=== PATIENT | male | born 1980 | race Caucasian/White ===

== ENCOUNTER 2016-10-29 12:17 | Emergency (ER) | payer MEDICAID ==
[~2016-10-29] VITALS: Ht 182.9 cm; Wt 122.5 kg
--- NOTE | 2016-10-29 13:20 | PHYS DOC ---
Past Medical History Past Medical History: Diabetes-Type II Past Surgical History: Cholecystectomy, Other Additional Past Surgical Histo: ABSCESS 2009 LEFT GROIN, R KNEE Alcohol Use: None Drug Use: None Adult General Chief Complaint Chief Complaint: MECHANICAL FALL HPI HPI Patient is a 36 year old male who presents with right shoulder pain after fall. Patient reports 2 days ago he is on a ladder taking down [place] lights. He fell off the ladder, approximately 10 feet onto the ground and landed on his right side. He did not hit his head or lose consciousness. His right elbow was dislocated, and patient quickly reduce this by himself. Although he had some minor aches in his right elbow and right shoulder, he started having much more significant pain in his right shoulder on Sunday. He presents today with continued pain in his right shoulder; he is having difficulty lifting his arm due to pain. He does have a small abrasion to his right elbow which he has been putting antibiotic ointment on. Last tetanus shot 4 years ago. Patient has taken Tylenol and ibuprofen for pain with insufficient relief. Review of Systems Review of Systems Constitutional: Denies fever or chills Eyes: Denies change in visual acuity or eye pain HENT: Denies nasal congestion or sore throat Respiratory: Denies cough or shortness of breath Cardiovascular: Denies chest pain GI: Denies abdominal pain, nausea, vomiting, bloody stools or diarrhea : Denies dysuria or hematuria Musculoskeletal: R shoulder pain; dislocated R elbow reduced by himself just after fall Integument: Denies rash or skin lesions Neurologic: Denies headache, focal weakness or sensory changes Current Medications Current Medications Current Medications Medications (Trade) Dose Ordered Sig/Michelle Start Time Stop Time Status Last Admin Dose Admin Oxycodone/ Acetaminophen (Percocet 5/325) 2 tab 1X ONCE 10/29/16 14:00 10/29/16 14:01 DC 10/29/16 13:36 2 TAB Allergies Allergies Allergies Coded Allergies Type Severity Reaction Last Updated Verified No Known Drug Allergies 10/29/16 No Physical Exam Physical Exam Constitutional: Well developed, well nourished, no acute distress, non-toxic appearance HENT: Normocephalic, atraumatic, bilateral external ears normal Eyes: EOMI, conjunctiva normal, no discharge Neck: Normal range of motion, no stridor. No midline TTP, no stepoff or deformity Cardiovascular: Heart rate normal, regular rhythm, no murmur Lungs & Thorax: Bilateral breath sounds clear to auscultation Abdomen: Bowel sounds normal, soft, non-distended, no TTP Skin: Warm, dry, no erythema, no rash Back: No midline tenderness, no stepoff or deformity Extremities: R shoulder visually similar to L shoulder, no deformity or skin lesion noted; R shoulder and trapezius generally TTP; ROM appears intact, although abduction of arm significantly limited by pain; R elbow without visual or palpable abnormality, minimal TTP if at all; 2+ radial pulse, motor function and sensation to light in hand/forearm fully intact Neurologic: Alert and oriented X 3, no gross deficits noted Current Patient Data Vital Signs Vital Signs Date Time Temp Pulse Resp B/P Pulse Ox O2 Delivery O2 Flow Rate FiO2 10/29/16 14:27 82 16 121/57 99 10/29/16 13:00 97.5 Room Air 97.5 EKG EKG [] Radiology/Procedures Radiology/Procedures X-ray R elbow: Impression: 1. No acute fracture noted in the right elbow. X-ray R shoulder: Impression: 1. Soft tissue swelling right shoulder. 2. No fracture or dislocation right shoulder. Course & Med Decision Making Course & Med Decision Making Pertinent Labs and Imaging studies reviewed. (See chart for details) Patient is 36-year-old male who presents with right shoulder pain status post fall 2 days ago from ladder. Apparently dislocated his right elbow, which he then reduced himself. Elbow without obvious abnormality. Neurovascularly intact. Shoulder generally tender to palpation, suspect non-bony injury such as to rotator cuff or labrum more likely. Will obtain x-rays of shoulder and elbow to evaluate. Dose of oral pain medication ordered for patient comfort. Imaging results as above. Discussed results with patient. Discussed need to follow up with orthopedic surgeon. Patient placed in sling. Discharged home with rx for pain medication, instructions for follow up with ortho, return precautions. Dragon Disclaimer Dragon Disclaimer This electronic medical record was generated, in whole or in part, using a voice recognition dictation system. Departure Departure Impression: Primary Impression: Shoulder injury Disposition: HOME, SELF-CARE Condition: STABLE Referrals: LESLIE HERBERT II, MD Patient Instructions: Elbow Dislocation, Shoulder Sprain Additional Instructions: Thank you for allowing us to provide care today in the Emergency Department. Take the provided medication as directed. Use caution when taking the pain medication as it can make you drowsy. Schedule a follow up appointment with an orthopedic surgeon using the provided contact information. Return promptly to the Emergency Department if you develop any new or concerning symptoms. Scripts Hydrocodone/Apap 5-325 ([place] 5-325 Tablet)1 Each Tablet1-2 Tab PO PRN Q6HRS PRN PAIN #25 TAB Prov:CLAUDIA RODAS MD 10/29/16 CLAUDIA RODAS MD Oct 29, 2016 13:20
--- NOTE | 2016-10-29 13:55 | RAD ---
Right shoulder 3 views. History: Fell from a ladder, pain right shoulder and elbow 3 views were taken of the right shoulder. There is not evidence of an acute fracture or dislocation or osseous abnormality. There is soft tissue swelling. Impression: 1. Soft tissue swelling right shoulder. 2. No fracture or dislocation right shoulder.
[2016-10-29] MEDS ORDERED: OXYCODONE/APAP 5/325 TABLET. PO ONE (14:00)
--- NOTE | 2016-10-29 14:00 | RAD ---
Right elbow 3 views. History: Right elbow pain after a fall off a ladder "self reduced elbow dislocation" 3 views were taken of the right elbow. There is no acute fracture. Elbow is in normal position. There is soft tissue swelling. Impression: 1. No acute fracture noted in the right elbow.
[2016-10-29] MEDS ORDERED: HYDR-971 PO (14:16)
[2016-10-29 14:27] VITALS: BP 121/57
== END 2016-10-29 14:30 | disposition home or self-care (01) ==
LOC: ER 13:26
DX: S49.91XA Unspecified injury of right shoulder and upper arm, initial encounter (principal); M25.521 Pain in right elbow; E11.9 Type 2 diabetes mellitus without complications; Z90.49 Acquired absence of other specified parts of digestive tract; W11.XXXA Fall on and from ladder, initial encounter; Y93.89 Activity, other specified; Y92.89 Other specified places as the place of occurrence of the external cause; Y99.8 Other external cause status
CPT/HCPCS: 73030; 73080; 99284

== ENCOUNTER 2016-11-29 07:11 | Emergency (ER) | payer SELFPAY ==
[~2016-11-29] VITALS: Ht 185.4 cm; Wt 124.7 kg
[~2016-11-29 07:11] MED LIST: HYDR-971 PO
[2016-11-29] MEDS ORDERED: IV NORMAL SALINE 1000ML BAG 1,000 ML IV SCH (07:31)
[2016-11-29] MEDS: MORPHINE SULFATE 4 MG/ML DISP.SYRIN. IV/SQ PRN ×3 (07:43→09:04)
[2016-11-29 07:44] LABS: BASO % 1 % (0-3); EOS % 4 % (0-3); HEMATOCRIT 38.2 % (39.0-53.0); HEMOGLOBIN 12.5 g/dL (13.0-17.5); LYMPH # 1.5 x10^3/uL (1.0-4.8); LYMPH % 23 % (24-48); MEAN CORPUSCULAR HEMOGLOBIN 28 pg (25-35); MEAN CORPUSCULAR HGB CONC 33 g/dL (31-37); MEAN CORPUSCULAR VOLUME 86 fL (79-100); MONO % 6 % (0-9); NEUT % 68 % (31-73); PLATELET COUNT 287 x10^3/uL (140-400); RED BLOOD COUNT 4.46 x10^6/uL (4.30-5.70); RED CELL DISTRIBUTION WIDTH 14.1 % (11.5-14.5); WHITE BLOOD COUNT 6.7 x10^3/uL (4.0-11.0)
--- NOTE | 2016-11-29 07:44 | PHYS DOC ---
Past Medical History Past Medical History: Diabetes-Type II Past Surgical History: Cholecystectomy, Other Additional Past Surgical Histo: ABSCESS 2009 LEFT GROIN, R KNEE Additional Information: nonsmoker Alcohol Use: Occasionally Drug Use: None Adult General Chief Complaint Chief Complaint: NAUSEA/VOMITING/DIARRHA HPI HPI Patient is a 36 year old male who presents with nausea, vomiting, diarrhea, and abdominal pain for 4 days. He estimates 5 episodes of emesis and greater than 10 episodes of diarrhea in the last 24 hours. He denies blood in the stool or vomitus. He reports pain in the epigastric and right upper quadrant. He feels generally weak and has diffuse body aches and muscle cramps. He has had a nonproductive cough as well. He denies fever or urinary symptoms. He has had a cholecystectomy and "part of his intestine removed for an infection". His PCP is Dr. Pia Grant. Review of Systems Review of Systems Constitutional: Denies fever or chills. [] Eyes: Denies change in visual acuity, redness, or eye pain. [] HENT: Denies ear pain, nasal congestion or sore throat. [] Respiratory: Denies shortness of breath. Reports no productive cough. Cardiovascular: Denies chest pain, palpitations or edema. [] GI: Denies bloody stools. Reports nausea, vomiting, diarrhea, and abdominal pain. : Denies dysuria, hematuria or urinary frequency. [] Musculoskeletal: Denies back pain or joint pain. [] Integument: Denies rash or skin lesions. [] Neurologic: Denies headache, focal weakness or sensory changes. [] Endocrine: Denies polyuria or polydipsia. [] Psych: Denies anxiety or depression. [] All systems reviewed and negative unless otherwise stated in the HPI. Current Medications Current Medications Current Medications Medications (Trade) Dose Ordered Sig/Michelle Start Time Stop Time Status Last Admin Dose Admin Info (Do NOT chart on this entry -- for MONITORING) 1 each PRN DAILY PRN 11/29/16 08:00 12/01/16 07:59 Iohexol (Omnipaque 300 Mg/ml) 75 ml 1X ONCE 11/29/16 07:45 11/29/16 07:48 DC 11/29/16 08:30 75 ML Morphine Sulfate 4 mg 4 mg PRN Q15MIN PRN 11/29/16 07:45 11/30/16 07:44 11/29/16 09:04 4 MG Multi-Ingredient Mouthwash/Gargle (Gi Cocktail Single Dose) 15 ml 1X ONCE 11/29/16 09:30 11/29/16 09:31 DC 11/29/16 09:42 15 ML Ondansetron HCl (Zofran) 4 mg 1X ONCE 11/29/16 07:45 11/29/16 07:46 DC 11/29/16 07:43 4 MG Sodium Chloride (Iv Sodium Chloride 0.9% 1000ml Bag) 1,000 ml @ 1,000 mls/hr Q1H 11/29/16 07:31 11/29/16 08:30 DC 11/29/16 07:44 1,000 MLS/HR Allergies Allergies Allergies Coded Allergies Type Severity Reaction Last Updated Verified No Known Drug Allergies 10/29/16 No Physical Exam Physical Exam Constitutional: Well developed, well nourished, no acute distress, non-toxic appearance. [] HENT: Normocephalic, atraumatic, oropharynx moist. [] Eyes: PERRLA, EOMI, conjunctiva normal, no discharge. [] Neck: Normal range of motion, no tenderness, supple, no stridor. [] Cardiovascular: Heart rate regular rhythm, no murmur. [] Lungs & Thorax: Bilateral breath sounds clear to auscultation without wheezes, rales, or rhonchi. [] Abdomen: Bowel sounds normal, soft, right lower quadrant and epigastric tenderness, no masses, no pulsatile masses. [] Skin: Warm, dry, no erythema, no rash. [] Back: No midline tenderness, no CVA tenderness. [] Extremities: No tenderness, ROM intact, no edema. Distal pulses equal bilaterally. [] Neurologic: Alert and oriented X 3, normal motor function, normal sensory function, no focal deficits noted. [] Psychologic: Affect normal, judgement normal, mood normal. [] Current Patient Data Vital Signs Vital Signs Date Time Temp Pulse Resp B/P Pulse Ox O2 Delivery O2 Flow Rate FiO2 11/29/16 09:04 20 98 Room Air 11/29/16 08:46 85 165/91 11/29/16 07:20 98.1 98.1 Lab Values Laboratory Tests Test 11/29/16 07:20 11/29/16 07:30 11/29/16 07:50 Glucose (Fingerstick) 347mg/dL (70-99) H White Blood Count 6.7x10^3/uL (4.0-11.0) Red Blood Count 4.46x10^6/uL (4.30-5.70) Hemoglobin 12.5g/dL (13.0-17.5) L Hematocrit 38.2% (39.0-53.0) L Mean Corpuscular Volume 86fL (79-100) Mean Corpuscular Hemoglobin 28pg (25-35) Mean Corpuscular Hemoglobin Concent 33g/dL (31-37) Red Cell Distribution Width 14.1% (11.5-14.5) Platelet Count 287x10^3/uL (140-400) Neutrophils (%) (Auto) 68% (31-73) Lymphocytes (%) (Auto) 23% (24-48) L Monocytes (%) (Auto) 6% (0-9) Eosinophils (%) (Auto) 4% (0-3) H Basophils (%) (Auto) 1% (0-3) Neutrophils # (Auto) 4.6x10^3uL (1.8-7.7) Lymphocytes # (Auto) 1.5x10^3/uL (1.0-4.8) Monocytes # (Auto) 0.4x10^3/uL (0.0-1.1) Eosinophils # (Auto) 0.2x10^3/uL (0.0-0.7) Basophils # (Auto) 0.0x10^3/uL (0.0-0.2) Sodium Level 136mmol/L (136-145) Potassium Level 4.3mmol/L (3.5-5.1) Chloride Level 104mmol/L (98-107) Carbon Dioxide Level 23mmol/L (21-32) Anion Gap 9 (6-14) Blood Urea Nitrogen 20mg/dL (8-26) Creatinine 1.2mg/dL (0.7-1.3) Estimated GFR (Cockcroft-Gault) 68.1 BUN/Creatinine Ratio 17 (6-20) Glucose Level 381mg/dL (70-99) H Calcium Level 8.8mg/dL (8.5-10.1) Total Bilirubin 0.2mg/dL (0.2-1.0) Aspartate Amino Transferase (AST) 16U/L (15-37) Alanine Aminotransferase (ALT) 23U/L (16-63) Alkaline Phosphatase 94U/L (46-116) Total Protein 6.8g/dL (6.4-8.2) Albumin 2.6g/dL (3.4-5.0) L Albumin/Globulin Ratio 0.6 (1.0-1.7) L Lipase 97U/L (73-393) Urine Collection Type Unknown Urine Color Yellow Urine Clarity Clear Urine pH 6.0 Urine Specific [place] >=1.030 Urine Protein >=300mg/dL (NEG-TRACE) Urine Glucose (UA) >=1000mg/dL (NEG) Urine Ketones (Stick) Negativemg/dL (NEG) Urine Blood Small (NEG) Urine Nitrite Negative (NEG) Urine Bilirubin Negative (NEG) Urine Urobilinogen Dipstick 0.2mg/dL (0.2 mg/dL) Urine Leukocyte Esterase Negative (NEG) Urine RBC 0/HPF (0-2) Urine WBC 0/HPF (0-4) Urine Squamous Epithelial Cells Few/LPF Urine Bacteria 0/HPF (0-FEW) Laboratory Tests 11/29/16 07:30 Laboratory Tests 11/29/16 07:30 EKG EKG [] Radiology/Procedures Radiology/Procedures REASON: n/v/d, rlq pain PROCEDURE: ABD PELV W/ IV CONTRAST ONLY Indication nausea vomiting and diarrhea. Right lower quadrant pain. Duration of symptoms 4 days. Axial images through the abdomen and pelvis were obtained. 75 cc of Omnipaque 300 was administered intravenously. No oral contrast was administered. No prior imaging of the abdomen or pelvis is available. The lung bases are clear. The liver and spleen appear unremarkable. Clips are noted in the gallbladder fossa. No adrenal masses are seen. There is likely some persistent lobulation associated with the kidneys. An acute or significant renal anomaly is not seen. The pancreas appears unremarkable. In the pelvis the appendix is seen in the right lower quadrant and appears normal. A mass inflammatory process or acute finding within the pelvis is not seen. IMPRESSION: No acute finding seen in the abdomen or pelvis. Course & Med Decision Making Course & Med Decision Making Pertinent Labs and Imaging studies reviewed. (See chart for details) ED course: The patient presets with nausea, vomiting, diarrhea, and abdominal pain. On exam, his abdomen is soft and nonsurgical with tenderness in the right lower quadrant and epigastric region. He has hyperglycemia, consistent with his diabetes. There are no other significant laboratory abnormalities. He continued to have pain after IV morphine and Zofran. A GI cocktail significantly improved his pain. There were no acute findings on CT of abdomen and pelvis. I discussed results with patient and his . He is discharged home with prescriptions for Zofran, [place], and Protonix. He is given contact information for GI for follow- up. Return precautions were discussed. Patient and verbalize understanding and agree with plan. Dragon Disclaimer Dragon Disclaimer This electronic medical record was generated, in whole or in part, using a voice recognition dictation system. Departure Departure Impression: Primary Impression: Abdominal pain Additional Impression: Vomiting and diarrhea Disposition: HOME, SELF-CARE Condition: IMPROVED Referrals: PIA GRANT (PCP) LILIAM RUIZ MD Patient Instructions: Abdominal Pain, [id number], Diarrhea, [id number], Nausea and Vomiting, [id number] Additional Instructions: There were no concerning findings on your labs or CT scan today. Please take the prescribed medications as directed. Do not drive or operate heavy machinery while taking pain medication. Please follow up with the GI doctor listed below if your pain continues. Return to the emergency department if you have continued vomiting, bloody stools , severe pain, fever, or other new or concerning symptoms. Scripts Pantoprazole Sodium (Protonix)40 Mg Tablet.dr1 Tab PO DAILY #30 TAB Prov:THIAGO RYDER 11/29/16 Hydrocodone/Apap 5-325 ([place] 5-325 Tablet)1 Each Tablet1 Tab PO PRN Q6HRS PRN PAIN #20 TAB Prov:THIAGO RYDER 11/29/16 Ondansetron (Zofran Odt)4 Mg Tab.rapdis1 Tab SL Q8HRS #10 TAB Prov:THIAGO RYDER 11/29/16 Problem Qualifiers Primary Impression: Abdominal pain Abdominal location: epigastric Qualified Code: R10.13 - Epigastric pain THIAGO RYDER Nov 29, 2016 07:44
[2016-11-29] MEDS ORDERED: ONDANSETRON PF 4 MG/2 ML VIAL. IV ONE (07:45)
[2016-11-29] MEDS ORDERED: IOHEXOL 300 MG/ML 75 ML VIAL IV ONE (07:45)
[2016-11-29 07:48] LABS: CALCIUM 8.8 mg/dL (8.5-10.1); CREATININE 1.2 mg/dL (0.7-1.3); GFR 68.1; POTASSIUM 4.3 mmol/L (3.5-5.1)
[2016-11-29 07:54] LABS: ALBUMIN 2.6 g/dL (3.4-5.0); ALBUMIN/GLOBULIN RATIO 0.6 (1.0-1.7); TOTAL BILIRUBIN 0.2 mg/dL (0.2-1.0); TOTAL PROTEIN 6.8 g/dL (6.4-8.2)
[2016-11-29 08:00] LABS: BILIRUBIN,URINE NEGATIVE (NEG); GLUCOSE,URINE >=1000 mg/dL (NEG); NITRITE,URINE NEGATIVE (NEG); PROTEIN,URINE >=300 mg/dL (NEG-TRACE); UROBILINOGEN,URINE 0.2 mg/dL (0.2 mg/dL)
[2016-11-29] MEDS ORDERED: CONTRAST GIVEN MC PRN (08:00)
[2016-11-29 08:06] LABS: BACTERIA,URINE 0 /HPF (0-FEW); RBC,URINE 0 /HPF (0-2); SQUAMOUS EPITHELIAL CELL,UR FEW /LPF; WBC,URINE 0 /HPF (0-4)
--- NOTE | 2016-11-29 09:17 | RAD ---
Indication nausea vomiting and diarrhea. Right lower quadrant pain. Duration of symptoms 4 days. Axial images through the abdomen and pelvis were obtained. 75 cc of Omnipaque 300 was administered intravenously. No oral contrast was administered. No prior imaging of the abdomen or pelvis is available. The lung bases are clear. The liver and spleen appear unremarkable. Clips are noted in the gallbladder fossa. No adrenal masses are seen. There is likely some persistent lobulation associated with the kidneys. An acute or significant renal anomaly is not seen. The pancreas appears unremarkable. In the pelvis the appendix is seen in the right lower quadrant and appears normal. A mass inflammatory process or acute finding within the pelvis is not seen. IMPRESSION: No acute finding seen in the abdomen or pelvis.
[2016-11-29] MEDS ORDERED: LIDO:MAALOX:DONNATAL 1:1:1 15 ML SINGLE DOSE SWSW ONE (09:30)
[2016-11-29 10:00] VITALS: BP 147/81
[2016-11-29] MEDS ORDERED: HYDR-971 PO (10:09)
[2016-11-29] MEDS ORDERED: PANT40TA3 PO (10:09)
[2016-11-29] MEDS ORDERED: ONDA4TAB10 SL (10:09)
== END 2016-11-29 10:32 | disposition home or self-care (01) ==
LOC: ER 07:11
DX: R10.13 Epigastric pain (principal); R11.2 Nausea with vomiting, unspecified; R19.7 Diarrhea, unspecified; E11.65 Type 2 diabetes mellitus with hyperglycemia; Z90.49 Acquired absence of other specified parts of digestive tract
CPT/HCPCS: 36415; 74177; 80053; 81001; 82947; 83690; 85027; 96361; 96374; 96375; 96376; 99285; J2270; J2405; J7030; Q9967